=== PATIENT | male | born 1995 | race Caucasian/White ===

== ENCOUNTER 2019-07-12 08:28 | Emergency (ER) | payer BC ==
--- NOTE | 2019-07-12 08:53 | ERPHSYRPT ---
- History of Present Illness Time Seen by Provider: 07/12/19 08:44 Source: patient Exam Limitations: no limitations Patient Subjective Stated Complaint: pt here for laceration to left thumb at 2200 last night while working on wood, Triage Nursing Assessment: pt has 1 1/2 cm laceration to left thumb, no bleeding , has full range of motion to thumb Occurred: hours ago (10) Method of Injury: incised (accidental minor cut) Quality: constant Severity of Pain-Max: mild Severity of Pain-Current: mild Extremities Pain Location: thumb: left Modifying Factors: Improves With: movement (worsen) Associated Symptoms: none Allergies/Adverse Reactions: No Known Drug Allergies Allergy (Unverified 07/12/19 08:37) Hx Tetanus, Diphtheria Vaccination/Date Given: No Hx Influenza Vaccination/Date Given: No Hx Pneumococcal Vaccination/Date Given: No Immunizations Up to Date: No - Review of Systems Constitutional: No Fever, No Chills Eyes: No Symptoms Ears, Nose, & Throat: No Symptoms Respiratory: No Cough, No Dyspnea Cardiac: No Chest Pain, No Edema, No Syncope Abdominal/Gastrointestinal: No Abdominal Pain, No Nausea, No Vomiting, No Diarrhea Genitourinary Symptoms: No Dysuria Musculoskeletal: No Back Pain, No Neck Pain Skin: No Rash Neurological: No Dizziness, No Focal Weakness, No Sensory Changes Psychological: No Symptoms Endocrine: No Symptoms All Other Systems: Reviewed and Negative - Past Medical History Pertinent Past Medical History: No Neurological History: No Pertinent History ENT History: No Pertinent History Cardiac History: No Pertinent History Respiratory History: No Pertinent History Endocrine Medical History: No Pertinent History Musculoskeletal History: No Pertinent History GI Medical History: No Pertinent History History: No Pertinent History Psycho-Social History: No Pertinent History Male Reproductive Disorders: No Pertinent History - Past Surgical History Past Surgical History: No Neuro Surgical History: No Pertinent History Cardiac: No Pertinent History Respiratory: No Pertinent History Gastrointestinal: No Pertinent History Genitourinary: No Pertinent History Musculoskeletal: No Pertinent History Male Surgical History: No Pertinent History - Social History Smoking Status: Current every day smoker Exposure to second hand smoke: Yes Drug Use: none Patient Lives Alone: No Significant Family History: no pertinent family hx - Nursing Vital Signs Nursing Vital Signs: Initial Vital Signs Temperature 97.9 F 07/12/19 08:32 Pulse Rate 95 H 07/12/19 08:32 Respiratory Rate 16 07/12/19 08:32 Blood Pressure 139/93 07/12/19 08:32 O2 Sat by Pulse Oximetry 97 07/12/19 08:32 Pain Scale Pain Intensity 5 - Physical Exam General Appearance: no apparent distress, alert Eyes, Ears, Nose, Throat Exam: normal ENT inspection Neck Exam: normal inspection Cardiovascular/Respiratory Exam: chest non-tender, normal breath sounds, regular rate/rhythm Abdominal Exam: non-tender, soft Back Exam: normal inspection Shoulder Exam: normal inspection Elbow/Forearm Exam: normal inspection Wrist Exam: normal inspection Hand Exam: laceration (2 cm), No limited ROM Neuro/Tendon Exam: normal sensation, normal motor functions, normal tendon functions, responds to pain, no evidence tendon injury, No motor deficit, No sensory deficit Mental Status Exam: alert, oriented x 3 Skin Exam: normal color SpO2 Interpretation: normal SpO2: 97 O2 Delivery: Room Air Procedures - Laceration/Wound Repair Left Finger Wound Length (cm): 2 Wound's Depth, Shape: superficial, linear Wound Explored: to base Irrigated: No Hibiclens Prep: Yes Anesthesia: local, 1% Lidocaine Wound Repaired With: sutures Suture Size/Type: 4-0, nylon Number of Sutures: 5 Layer Closure?: No Sterile Dressing Applied?: Yes Splint Applied?: No Sling Applied?: No - Course Nursing assessment & vital signs reviewed: Yes Ordered Tests: Medication Summary Discontinued Medications Generic Name Dose Route Start Last Admin Trade Name Rolan PRN Reason Stop Dose Admin Bacitracin Zinc 0.9 gm 07/12/19 09:01 07/12/19 09:12 Baciguent Packet TP 07/12/19 09:02 0.9 gm STAT ONE Administration Bacitracin Zinc Confirm 07/12/19 09:07 Baciguent Packet Administered 07/12/19 09:08 Dose 1 gm .ROUTE .STK-MED ONE Lidocaine HCl 5 ml 07/12/19 09:01 07/12/19 09:10 Xylocaine 1% Hcl 20 Ml Mdv IJ 07/12/19 09:02 5 ml STAT ONE Administration Lidocaine HCl Confirm 07/12/19 09:07 Xylocaine 1% Hcl 20 Ml Mdv Administered 07/12/19 09:08 Dose 1 ml .ROUTE .STK-MED ONE - Progress Progress: improved Progress Note: 07/12/19 09:36 closed without complication. Advised him of increased risk for infection due to delayed closure. Counseled pt/family regarding: need for follow-up (S/R 10 days) - Departure Departure Disposition: Home Clinical Impression: Laceration Condition: Stable Critical Care Time: No Referrals: AQUILINO THOMPSON MD [Primary Care Provider] - Instructions: Laceration Repair With Stitches (DC) Additional Instructions: Stitches out in 10-14 days. Prescriptions: Cephalexin Mh 500 mg [Keflex 500 mg] 500 mg PO TID #30 capsule
[2019-07-12] MEDS ORDERED: BACIGUENT PACKET TP ONE (09:01)
[2019-07-12] MEDS ORDERED: XYLOCAINE 1% HCL 20 ML MDV IJ ONE (09:01)
[2019-07-12] MEDS ORDERED: BACIGUENT PACKET ONE (09:07)
[2019-07-12] MEDS ORDERED: XYLOCAINE 1% HCL 20 ML MDV ONE (09:07)
[2019-07-12] MEDS ORDERED: Adacel Vial IM ONE ×2 (09:37→09:40)
[2019-07-12 10:00] VITALS: BP 155/99; PULSE 108; O2SAT 98
== END 2019-07-12 10:03 | disposition home or self-care (01) ==
LOC: ED 08:28
DX: S61.012A Laceration without foreign body of left thumb without damage to nail, initial encounter (principal); W22.8XXA Striking against or struck by other objects, initial encounter
CPT/HCPCS: 12001; 90471; 90715; 96372; 99284; A9270-GY

== ENCOUNTER 2019-07-18 18:08 | Emergency (ER) | payer BC ==
[2019-07-18 18:21] VITALS: BP 94/63; PULSE 121; O2SAT 97
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
== END 2019-07-18 18:45 | disposition home or self-care (01) ==
LOC: ED 18:08
DX: F19.10 Other psychoactive substance abuse, uncomplicated (principal)
CPT/HCPCS: 99283